=== PATIENT | female | born 1950 | race Asian ===

== ENCOUNTER → 2017-11-09 | Outpatient (CLI) | payer MEDICARE, OTHER | END | disposition home or self-care (01) | LOC: RADPV 13:48 | PROVIDERS: ATTEND Legal Medicine | DX: R07.9 Chest pain, unspecified (principal); E11.65 Type 2 diabetes mellitus with hyperglycemia | CPT/HCPCS: 93306 ==

== ENCOUNTER → 2019-01-31 | Outpatient (CLI) | payer MEDICARE, OTHER | END | disposition home or self-care (01) | LOC: RADPV 10:02 | PROVIDERS: ATTEND Legal Medicine | DX: M47.812 Spondylosis without myelopathy or radiculopathy, cervical region (principal); M17.11 Unilateral primary osteoarthritis, right knee; M25.511 Pain in right shoulder; M25.561 Pain in right knee | CPT/HCPCS: 72040 ==